=== PATIENT | male | born 1960 | race Caucasian/White ===

== ENCOUNTER 2023-08-15 17:06 | Emergency (ER) | payer MEDICARE ==
[2023-08-15] MEDS ORDERED: Albuterol 200 PUFF (6.7GM INHALER) ONE (17:46)
[2023-08-15] MEDS ORDERED: predniSONE 20 MG TAB ONE (17:46)
[2023-08-15] MEDS ORDERED: Benzonatate 100 MG CAP ONE (17:46)
[2023-08-15] MEDS ORDERED: Amoxicillin/Potassium Clav 875 MG TAB ONE (18:34)
== END 2023-08-15 18:42 | disposition home or self-care (01) ==
LOC: MADERS 17:06
DX: J20.9 Acute bronchitis, unspecified (principal); F17.290 Nicotine dependence, other tobacco product, uncomplicated; Z20.822 Contact with and (suspected) exposure to COVID-19
CPT/HCPCS: 71046; 87635; 87804; J7512